=== PATIENT | female | born 1980 | race Caucasian/White ===

== ENCOUNTER 2017-04-20 14:52 | Emergency (ER) | payer OTHER ==
[~2017-04-20] VITALS: Ht 162.6 cm; Wt 68.0 kg
[2017-04-20] MEDS ORDERED: CYCLOBENZAPRINE5 MG PO (17:34)
[2017-04-20] MEDS ORDERED: PREDNISONE 20 M20 MG PO (17:35)
[2017-04-20] MEDS ORDERED: NORCO 5-325 TA1 EACH PO (17:52)
[2017-04-20 18:01] VITALS: BP 116/58
== END 2017-04-20 18:02 | disposition home or self-care (01) ==
LOC: ER 14:52
DX: M54.5 Low back pain (principal); F17.210 Nicotine dependence, cigarettes, uncomplicated; Z90.49 Acquired absence of other specified parts of digestive tract; Z98.890 Other specified postprocedural states

== ENCOUNTER 2020-01-06 14:31 | Emergency (ER) | payer BC ==
[~2020-01-06] VITALS: Ht 157.5 cm; Wt 74.4 kg
[~2020-01-06 14:31] MED LIST: CYCLOBENZAPRINE5 MG PO; NORCO 5-325 TA1 EACH PO; PREDNISONE 20 M20 MG PO
[2020-01-06 15:12] LABS: ABSOLUTE NEUTROPHILS 7.4 thou/uL (1.4-8.2); BASOPHILS 0.9 % (0.0-2.0); EOSINOPHILS 0.7 % (0.0-3.0); HEMATOCRIT 42.8 % (37.0-47.0); HEMOGLOBIN 14.9 gm/dL (12.0-15.0); LYMPHOCYTES 26.3 % (24.0-44.0); MCH 30.2 pg (26.0-34.0); MCHC 34.9 g/dL (28.0-37.0); MCV 86.5 fL (80.0-100.0); MONOCYTES 6.6 % (1.0-8.0); PLATELET COUNT 346 thou/uL (150-400); POLYS 65.5 % (36.0-66.0); RBC 4.95 mil/uL (4.20-5.00); RDW 13.2 % (10.5-14.5); WBC 11.4 thou/uL (4.0-11.0)
[2020-01-06 15:12] LABS: URINE BLOOD NEGATIVE (Negative); URINE CLARITY CLEAR; URINE COLOR YELLOW; URINE GLUCOSE-RANDOM* NEGATIVE (Negative); URINE KETONES TRACE (Negative); URINE LEUKOCYTES-REFLEX NEGATIVE (Negative); URINE PROTEIN (DIPSTICK) 1+ (Negative); URINE SPECIFIC GRAVITY >= 1.030 (1.005-1.035); URINE UROBILINOGEN 0.2 E.U./dl (0.2-1.0)
[2020-01-06 15:17] LABS: ICTOTEST (BILI CONFIRMATORY) Negative (Negative); URINE BILIRUBIN NEGATIVE (Negative); URINE NITRITE-REFLEX POSITIVE (Negative)
[2020-01-06 15:18] LABS: SQUAMOUS 0-3 Few /LPF (0-3)
[2020-01-06 15:19] LABS: CASTS None Seen /LPF (None Seen); CRYSTALS None Seen /LPF (None Seen); URINE RBC None Seen /HPF (0-2); URINE WBC-REFLEX 0-5 Rare /HPF (0-5)
[2020-01-06 15:20] LABS: CALCIUM 9.1 mg/dL (8.5-10.1); CREATININE 0.6 mg/dL (0.6-1.0); POTASSIUM 3.8 mmol/L (3.5-5.1)
[2020-01-06 15:27] LABS: ALBUMIN 3.8 g/dL (3.4-5.0); TOTAL BILIRUBIN 0.9 mg/dL (0.2-1.0); TOTAL PROTEIN 7.9 g/dL (6.4-8.2)
[2020-01-06] MEDS ORDERED: BENTYL 20 MG TA20 M1 PO (16:53)
[2020-01-06 17:01] VITALS: BP 122/78
== END 2020-01-06 17:08 | disposition home or self-care (01) ==
LOC: ER 14:31
PROVIDERS: Nurse Practitioner Family
DX: R10.31 Right lower quadrant pain (principal); R11.10 Vomiting, unspecified; F17.210 Nicotine dependence, cigarettes, uncomplicated; Z79.899 Other long term (current) drug therapy; Z90.49 Acquired absence of other specified parts of digestive tract; Z98.890 Other specified postprocedural states

== ENCOUNTER 2020-10-05 15:10 | Emergency (ER) | payer OTHER ==
[~2020-10-05] VITALS: Ht 157.5 cm; Wt 68.0 kg
[~2020-10-05 15:10] MED LIST changes: +BENTYL 20 MG TA20 M1 PO
[2020-10-05] MEDS ORDERED: ROBAXIN 750 MG750 MG PO (16:47)
[2020-10-05] MEDS ORDERED: IBUPROFEN 600600 M1 PO (16:47)
== END 2020-10-05 17:06 | disposition home or self-care (01) ==
LOC: ER 15:10
DX: S16.1XXA Strain of muscle, fascia and tendon at neck level, initial encounter (principal); S39.012A Strain of muscle, fascia and tendon of lower back, initial encounter; F17.210 Nicotine dependence, cigarettes, uncomplicated; Z79.2 Long term (current) use of antibiotics; V43.52XA Car driver injured in collision with other type car in traffic accident, initial encounter; Y93.89 Activity, other specified; Y92.89 Other specified places as the place of occurrence of the external cause; Y99.8 Other external cause status

== ENCOUNTER 2021-08-10 12:12 | Emergency (ER) | payer OTHER ==
[~2021-08-10] VITALS: Ht 154.9 cm; Wt 72.6 kg
[~2021-08-10 12:12] MED LIST changes: +IBUPROFEN 600600 M1 PO; +ROBAXIN 750 MG750 MG PO
[2021-08-10 12:44] VITALS: BP 139/87
[2021-08-10] MEDS ORDERED: METFORMIN HCL500 M3 PO (12:50)
[2021-08-10] MEDS ORDERED: MEDROLDOSEPACK PO (13:06)
[2021-08-10] MEDS ORDERED: TESSALON PERLE100 MG PO (13:06)
== END 2021-08-10 13:08 | disposition home or self-care (01) ==
LOC: ER 12:12
DX: J02.9 Acute pharyngitis, unspecified (principal); F17.210 Nicotine dependence, cigarettes, uncomplicated; Z90.49 Acquired absence of other specified parts of digestive tract; Z79.899 Other long term (current) drug therapy